=== PATIENT | male | born 1975 | race Caucasian/White ===

== ENCOUNTER 2017-12-25 08:00 | Emergency (ER) | payer OTHER ==
[2017-12-25] MEDS ORDERED: morphine CARPU-JECT 4 MG/1 ML DISP.SYRIN IVPUSH ONE (08:02)
--- NOTE | 2017-12-25 08:06 | PDOC ---
History of Present Illness - General Chief Complaint: Pain Stated Complaint: RT SHOULDER RIB PAIN Time Seen by Provider: 12/25/17 08:01 History Source: Patient, Spouse Exam Limitations: No Limitations - History of Present Illness Initial Comments: 12/25/17 08:02 Mr Smiley is a 42 yo M who presents ambulatory to the ER with a complaint of right sided chest pain Pt symptoms began just prior to arrival in the ER He reports severe right sided chest pain, which worsens with deep breath No fevers or chills No prior episode like this No chest wall trauma No recent travel No lower extremity edema PMH: denies PSH: denies Meds: denies ALL: NKDA Social: social alcohol use, tobacco use, denies drug use FH: non contributory ROS: GENERAL/CONSTITUTIONAL: No: fever, chills, weakness, loss of appetite. HEAD, EYES, EARS, NOSE AND THROAT: No: change in vision, ear pain, discharge, sore throat, throat swelling. CARDIOVASCULAR: Yes: chest pain NO: lightheadedness, palpitations, syncope RESPIRATORY: No: cough, shortness of breath, wheezing, hemoptysis, stridor. GASTROINTESTINAL: No: nausea, vomiting, diarrhea, abdominal cramping, rectal bleeding, constipation. GENITOURINARY: No: dysuria, hematuria, frequency, urgency, flank pain. MUSCULOSKELETAL: Yes: right shoulder pain No: back pain, neck pain, joint pain, muscle swelling or pain SKIN AND BREASTS: No: lesions, pallor, rash or easy bruising. NEUROLOGIC: No: headache, vertigo, paresthesias, weakness ENDOCRINE: No: unexplained weight gain or loss HEMATOLOGIC/LYMPHATIC: No: anemia, easy bleeding, swelling nodes. Physical Exam: GENERAL: The patient is in severe pain. HEAD: Normal EYES: PERRLA, EOMI, sclera anicteric, conjunctiva clear. ENT: Ears normal, nares patent, oropharynx clear without exudates. Moist mucous membranes. NECK: Normal range of motion, supple without lymphadenopathy, JVD, or masses. LUNGS: Breath sounds equal, clear to auscultation bilaterally. No wheezes, and no crackles. HEART:Regular rate and rhythm, normal S1 and S2 without murmur, rub or gallop. ABDOMEN: Soft, nontender, normoactive bowel sounds. No guarding, no rebound. EXTREMITIES: Normal range of motion, no edema. No clubbing or cyanosis. No erythema, or tenderness. NEUROLOGICAL: Cranial nerves II through XII grossly intact. Normal speech. No focal neurological deficits. MUSCULOSKELETAL: Back non-tender to palpation, no CVA tenderness SKIN: Warm, Dry, normal turgor, no rashes or lesions noted. Past History - Past Medical History Allergies/Adverse Reactions: Allergies Allergy/AdvReac Type Severity Reaction Status Date / Time No Known Allergies Allergy Verified 12/25/17 08:01 Home Medications: Ambulatory Orders Omeprazole 20 mg PO DAILY 12/25/17 ED Treatment Course - LABORATORY CBC & Chemistry Diagram: 12/25/17 08:42 12/25/17 08:42 - RADIOLOGY Radiology Studies Ordered: Category Date Time Status CHEST PA & LAT [RAD] Stat Radiology 12/25/17 08:02 Ordered Medical Decision Making - Medical Decision Making 12/25/17 08:05 Pt presents to the ER with right sided chest pain DD includes but is not limited to: Pneumothorax, pleural effusion, pleurisy, PE Will do: Labs EKG Morphine for pain CXR Consider CTA Cardiac monitoring Re assess 12/25/17 08:06 12/25/17 08:13 EKG: SR, rate of 71 bpm, axis nml, intervals nml, no st elevations or depressions, artifact at baseline 12/25/17 08:19 CXR: no evidence of effusion, mediastinum nml, no pneumothorax Will order CTA to r/o PE 12/25/17 09:49 Laboratory Tests 12/25/17 12/25/17 12/25/17 08:42 08:42 08:42 WBC 5.2 Hgb 15.6 Hct 44.8 Plt Count 168 Sodium 137 Potassium 3.6 Chloride 105 Carbon Dioxide 23 BUN 13 Creatinine 0.8 Random Glucose 95 Troponin I < 0.03 Pain much improved Clinical Impression: musculoskeletal pain, initial presentation *DC/Admit/Observation/Transfer Diagnosis at time of Disposition: Musculoskeletal pain - Discharge Dispostion Disposition: HOME Condition at time of disposition: Stable Decision to Admit order: No - Referrals - Patient Instructions Printed Discharge Instructions: DI for Pleurisy, DI for Musculoskeletal Pain Additional Instructions: Mr Smiley Thank you for coming in to the ER today Please review your studies Please return to the ER if you have any new symptoms, any other concerns or complaints Please be sure to follow up with your primary doctor within 1 week If pain recurs, please take Ibuprofen 600mg per is architect's instruction - Post Discharge Activity
[2017-12-25 08:13] VITALS: BP 152/111; PULSE 80; TEMP 97.8; BMI 33.6
[2017-12-25] MEDS ORDERED: morphine SULFATE 4 MG/ML VIAL ONE (08:24)
[2017-12-25 09:09] LABS: EOS % 4.3 % (0-4.5); HEMATOCRIT 44.8 % (35.4-49); HEMOGLOBIN 15.6 GM/dl (11.7-16.9); LYMPH % 26.7 % (8-40); MCH 32.1 pg (25.7-33.7); MCHC 34.9 g/dl (32.0-35.9); MEAN CELL VOLUME 92.1 fl (80-96); MEAN PLT VOLUME 8.2 fl (7.5-11.1); MONO % 10.7 % (3.8-10.2); NEUT % 57.3 % (42.8-82.8); PLATELET COUNT 168 K/MM3 (134-434); RBC 4.87 M/mm3 (4.00-5.60); RDW 12.2 % (11.9-15.9); WHITE BLOOD COUNT 5.2 K/mm3 (4.0-10.8)
[2017-12-25 09:26] LABS: ALBUMIN 4.4 g/dl (3.5-5.0); ALK PHOS 71 U/L (32-92); ANION GAP 9 (8-16); BILIRUBIN,TOTAL 0.7 mg/dl (0.2-1.0); BLOOD UREA NITROGEN 13 mg/dl (7-18); CALCIUM 8.8 mg/dl (8.4-10.2); CHLORIDE 105 mmol/L (98-107); CO2 23 mmol/L (22-28); CREATININE 0.8 mg/dl (0.6-1.3); GLUCOSE,RANDOM 95 mg/dl (74-106); POTASSIUM 3.6 mmol/L (3.5-5.1); SGOT/AST 36 U/L (10-42); SGPT/ALT 52 U/L (10-40); SODIUM 137 mmol/L (136-145); TOT PROT 7.4 g/dl (6.4-8.3)
--- NOTE | 2017-12-27 22:09 | EKG ---
Test Reason : Blood Pressure : / mmHG Vent. Rate : 071 BPM Atrial Rate : 071 BPM P-R Int : 144 ms QRS Dur : 086 ms QT Int : 398 ms P-R-T Axes : 041 015 002 degrees QTc Int : 432 ms NORMAL SINUS RHYTHM NORMAL ECG NO PREVIOUS ECGS AVAILABLE Confirmed by CHUCK OLSON MD ([id number]) on 12/27/2017 10:09:34 PM Referred By: DR OBRIEN Confirmed By:CHUCK OLSON MD
== END 2017-12-25 10:51 | disposition home or self-care (01) ==
LOC: FER 08:00
PROC: 3E033NZ Introduction of Analgesics, Hypnotics, Sedatives into Peripheral Vein, Percutaneous Approach (ICD-10-PCS; principal; 2017-12-25)
DX: M79.1 Myalgia (principal)
CPT/HCPCS: 36415; 71046-TC-FY; 71275-TC; 80053; 84484; 85025; 93005; 99282-25